=== PATIENT | female | born 1950 | race African-American/Black ===

== ENCOUNTER 2016-12-01 07:56 | Inpatient (IN) | payer MEDICARE, MEDICAID ==
[~2016-12-01] VITALS: Ht 170.2 cm; Wt 118.4 kg
[~2016-12-01 07:56] MED LIST: ATOR20TA65 PO; CARV3.1242 PO; DOCU-138 PO; FLONAS BOTHNSTRLS; GABAPENTIN PO; HYDR-519 PO; HYDR25TA PO; HYDROCHLOROTHIAZIDE PO; LISI10TA5 PO; RANITIDINE PO; SYN200 PO
[2016-12-01] MEDS ORDERED: SODIUM CHLORIDE 0.9% 1,000 ML IV ONE (08:04)
[2016-12-01 08:37] LABS: BASOPHILS % 0.6 % (0.0-2.0); EOSINOPHILS % 0.5 % (0.0-5.0); HEMATOCRIT. 34.6 % (36.0-48.0); HEMOGLOBIN. 11.4 g/dL (12.0-16.0); MEAN CORPUSCULAR HEMOGLOBIN 29.8 pg (28.0-32.0); MEAN CORPUSCULAR VOLUME 90.6 fL (81.0-99.0); MEAN PLATELET VOLUME 8.6 fl (7.4-10.4); MONOCYTES % 8.4 % (2.0-8.0); NEUTROPHILS % 49.5 % (40.0-76.0); PLATELET 169 x1000/uL (130-400); RED BLOOD CELL COUNT 3.81 mill/uL (4.2-5.4); RED CELL DISTRIBUTION WIDTH 20.7 % (11.6-14.6)
[2016-12-01 08:42] LABS: GLUCOSE URINE NEGATIVE (NEGATIVE); KETONES URINE NEGATIVE (NEGATIVE); LEUKOCYTE ESTERASE URINE NEGATIVE (NEGATIVE); NITRITE URINE NEGATIVE (NEGATIVE); OCCULT BLOOD URINE NEGATIVE (NEGATIVE); PROTEIN URINE 1+ (NEGATIVE); SPECIFIC GRAVITY URINE 1.028 (1.005-1.030)
[2016-12-01 08:46] LABS: COLOR URINE YELLOW (YELLOW)
[2016-12-01 08:47] LABS: CLARITY URINE CLEAR (CLEAR)
[2016-12-01 08:55] LABS: PROTHROMBIN TIME 10.7 sec (9.4-11.6)
[2016-12-01 08:57] LABS: CARBON DIOXIDE 30 mEq/L (21-32); CHLORIDE 105 mEq/L (98-107); ETHANOL BLOOD < 10 mg/dL; TROPONIN I < 0.02 ng/mL (0.00-0.04)
[2016-12-01 09:08] LABS: *AMPHETAMINES SCREEN URINE NEGATIVE (NEGATIVE); *BARBITURATES SCREEN URINE NEGATIVE (NEGATIVE); *BENZODIAZEPINES SCREEN URINE NEGATIVE (NEGATIVE); *COCAINE SCREEN URINE PRESUMTIVE POSITIVE (NEGATIVE); CANNABINOID URINE SCREEN NEGATIVE (NEGATIVE); METHADONE URINE SCREEN NEGATIVE (NEGATIVE); OPIATES URINE SCREEN NEGATIVE (NEGATIVE); PHENCYCLIDINE URINE SCREEN NEGATIVE (NEGATIVE)
[2016-12-01 09:14] LABS: BG BASE EXCESS 2.5 mmol/L (-2.0-2.0); BG FRACTION INSPIRED OXYGEN 21; BG HCO3 ACT 27.4 mmol/L (22.0-26.0); BG METHEMOGLOBIN 0.3 % (0.0-1.5); BG OXYGEN SATURATION 95.9 % (92.0-98.5); BG OXYHEMOGLOBIN 93.7 % (94.0-97.0); BG PCO2 43.6 mmHg (35.0-45.0); BG PH 7.416 (7.350-7.450); BG PO2 90.3 mmHg (75.0-100.0); BG SAMPLE SITE LEFT RADIAL; BG TOTAL HEMOGLOBIN 12.2 g/dL (12.0-18.0); BG VENT MODE ROOM AIR
[2016-12-01] MEDS ORDERED: ONDANSETRON HCL 4MG/2ML VIAL IV PRN (12:00)
[2016-12-01] MEDS ORDERED: ACETAMINOPHEN 325MG TABLET PO PRN (12:00)
[2016-12-01] MEDS ORDERED: ACETAMINOPHEN 650MG SUPP PR PRN (12:00)
[2016-12-01] MEDS ORDERED: DOCUSATE SODIUM 100MG CAPSULE PO PRN (12:00)
[2016-12-01] MEDS ORDERED: IPRATROPIUM/ALBUTEROL 0.5-3(2.5)MG/3ML NEB INH PRN (12:00)
[2016-12-01] MEDS ORDERED: MAGNESIUM/ALUMINUM HYDROXIDE/SIMETHICONE 30ML UDC PO PRN (12:00)
[2016-12-01] MEDS ORDERED: NA PHOS,M-B/NA PHOS,DI-BA ENEMA 118ML PR PRN (12:00)
[2016-12-01] MEDS ORDERED: GUAIFENESIN 200MG/10ML SUGAR FREE UDC PO PRN (12:00)
[2016-12-01] MEDS ORDERED: CLONIDINE 0.1MG TABLET PO PRN (12:00)
[2016-12-01] MEDS ORDERED: DIPHENHYDRAMINE 50MG/ML VIAL IV PRN (12:00)
[2016-12-01] MEDS ORDERED: ACETAMINOPHEN 650MG/20.3ML UDC GT PRN (12:00)
[2016-12-01] MEDS ORDERED: SODIUM CHLORIDE 0.9% 1,000 ML IV SCH (17:00)
[2016-12-01 17:11] VITALS: BP 191/86
[2016-12-01 17:19] VITALS: BP 191/86
[2016-12-01] MEDS: ENALAPRIL 2.5MG/2ML VIAL 2ML IV PRN (18:34)
[2016-12-01 20:00] VITALS: BP 184/82
[2016-12-01] MEDS: DEXT 5%/0.9% NACL 1,000 ML IV SCH (20:50)
[2016-12-01] MEDS ORDERED: SODIUM CHLORIDE 0.45% 1,000 ML IV SCH (21:45)
[2016-12-01 22:00] VITALS: BP 189/90
[2016-12-01] MEDS ORDERED: CLONIDINE HCL 0.1MG/24HR PATCH TD SCH (22:00)
[2016-12-01 23:03] LABS: AMMONIA 61 uMol/L (<32)
[2016-12-01] MEDS: HYDRALAZINE 20MG/ML VIAL IV SCH (23:52)
[2016-12-02] VITALS (15 sets, daily range): BP systolic 145–195; BP diastolic 76–103
[2016-12-02 03:39] LABS: CLARITY URINE CLEAR (CLEAR); COLOR URINE YELLOW (YELLOW); GLUCOSE URINE NEGATIVE (NEGATIVE); KETONES URINE NEGATIVE (NEGATIVE); LEUKOCYTE ESTERASE URINE 1+ (NEGATIVE); NITRITE URINE NEGATIVE (NEGATIVE); OCCULT BLOOD URINE 3+ (NEGATIVE); PH URINE 5.5 (4.5-8.0); PROTEIN URINE 1+ (NEGATIVE); SPECIFIC GRAVITY URINE 1.016 (1.005-1.030)
[2016-12-02] MEDS: ENALAPRIL 2.5MG/2ML VIAL 2ML IV PRN ×2 (04:09→14:28)
[2016-12-02 05:28] LABS: *BARBITURATES SCREEN URINE NEGATIVE (NEGATIVE); CANNABINOID URINE SCREEN NEGATIVE (NEGATIVE); METHADONE URINE SCREEN NEGATIVE (NEGATIVE); OPIATES URINE SCREEN NEGATIVE (NEGATIVE); PHENCYCLIDINE URINE SCREEN NEGATIVE (NEGATIVE)
[2016-12-02 05:30] LABS: *AMPHETAMINES SCREEN URINE NEGATIVE (NEGATIVE); *BENZODIAZEPINES SCREEN URINE NEGATIVE (NEGATIVE); *COCAINE SCREEN URINE PRESUMTIVE POSITIVE (NEGATIVE)
[2016-12-02] MEDS: HYDRALAZINE 20MG/ML VIAL IV SCH ×3 (05:36→17:49)
[2016-12-02 06:11] LABS: BASOPHILS % 0.4 % (0.0-2.0); EOSINOPHILS % 0.3 % (0.0-5.0); HEMATOCRIT. 37.9 % (36.0-48.0); HEMOGLOBIN. 12.6 g/dL (12.0-16.0); LYMPHOCYTES % 22.4 % (20.0-50.0); MEAN CORPUSCULAR HEMOGLOBIN 30.4 pg (28.0-32.0); MEAN CORPUSCULAR VOLUME 91.5 fL (81.0-99.0); MEAN PLATELET VOLUME 9.4 fl (7.4-10.4); MONOCYTES % 8.9 % (2.0-8.0); PLATELET 176 x1000/uL (130-400); RED BLOOD CELL COUNT 4.14 mill/uL (4.2-5.4); RED CELL DISTRIBUTION WIDTH 19.8 % (11.6-14.6)
[2016-12-02 06:34] LABS: CARBON DIOXIDE 27 mEq/L (21-32); CHLORIDE 107 mEq/L (98-107); HDL CHOLESTEROL 76 mg/dL (40-59); LDL CHOLESTEROL 113 mg/dL (5-100)
[2016-12-02] MEDS: DEXT 5%/0.9% NACL 1,000 ML IV SCH (12:00)
[2016-12-02] MEDS: LACTULOSE 20G/30ML UDC PO SCH ×2 (15:58→21:45)
[2016-12-02] MEDS ORDERED: ENALAPRIL 1.25MG/ML VIAL 1ML IV PRN (19:45)
[2016-12-03] VITALS (12 sets, daily range): BP systolic 116–177; BP diastolic 58–115
[2016-12-03] MEDS: HYDRALAZINE 20MG/ML VIAL IV SCH ×4 (00:29→17:41)
[2016-12-03] MEDS: DEXT 5%/0.9% NACL 1,000 ML IV SCH (04:54)
[2016-12-03] MEDS: LACTULOSE 20G/30ML UDC PO SCH ×2 (05:24→14:27)
[2016-12-03 13:35] LABS: BASOPHILS % 0.6 % (0.0-2.0); EOSINOPHILS % 0.2 % (0.0-5.0); HEMOGLOBIN. 11.4 g/dL (12.0-16.0); LYMPHOCYTES % 22.3 % (20.0-50.0); MEAN CORPUSCULAR HEMOGLOBIN 29.6 pg (28.0-32.0); MEAN CORPUSCULAR VOLUME 91.3 fL (81.0-99.0); MEAN PLATELET VOLUME 8.8 fl (7.4-10.4); MONOCYTES % 9.3 % (2.0-8.0); NEUTROPHILS % 67.6 % (40.0-76.0); PLATELET 168 x1000/uL (130-400); RED BLOOD CELL COUNT 3.83 mill/uL (4.2-5.4); RED CELL DISTRIBUTION WIDTH 20.5 % (11.6-14.6)
[2016-12-03 14:01] LABS: CARBON DIOXIDE 27 mEq/L (21-32); CHLORIDE 109 mEq/L (98-107)
[2016-12-03] MEDS ORDERED: ENOXAPARIN 40MG/0.4ML SYR SUBCUT SCH (14:05)
[2016-12-03 14:15] LABS: AMMONIA 14 uMol/L (<32)
[2016-12-03] MEDS: ENOXAPARIN 30MG/0.3ML SYR SUBCUT SCH (14:27)
[2016-12-03] MEDS ORDERED: ATORVASTATIN CALCIUM 20MG TABLET PO SCH (21:00)
[2016-12-04] VITALS (12 sets, daily range): BP systolic 116–155; BP diastolic 62–84
[2016-12-04] MEDS: ENOXAPARIN 30MG/0.3ML SYR SUBCUT SCH ×2 (03:17→15:21)
[2016-12-04] MEDS: HYDRALAZINE 20MG/ML VIAL IV SCH ×3 (05:32→12:22)
[2016-12-04] MEDS ORDERED: LACTULOSE 20G/30ML UDC PO SCH (09:00)
== END 2016-12-04 15:50 | DRG 917 ==
LOC: ER 08:03 → EDBEDREQ 08:25 → 3WST 10:12 → EDBEDREQ 10:19 → EDBEDREQTM 10:19 → EDBEDREQSVC 10:19 → ENRESERV 15:21
PROVIDERS: ADMIT Family Medicine; ATTEND Family Medicine
DX: T50.7X1A Poisoning by analeptics and opioid receptor antagonists, accidental (unintentional), initial encounter (principal); G92 Toxic encephalopathy; N17.9 Acute kidney failure, unspecified; E11.22 Type 2 diabetes mellitus with diabetic chronic kidney disease; Z68.41 Body mass index [BMI] 40.0-44.9, adult; N18.9 Chronic kidney disease, unspecified; D63.8 Anemia in other chronic diseases classified elsewhere; E03.9 Hypothyroidism, unspecified; E66.01 Morbid (severe) obesity due to excess calories; E78.5 Hyperlipidemia, unspecified; I12.9 Hypertensive chronic kidney disease with stage 1 through stage 4 chronic kidney disease, or unspecified chronic kidney disease; J44.9 Chronic obstructive pulmonary disease, unspecified; G89.29 Other chronic pain; F14.920 Cocaine use, unspecified with intoxication, uncomplicated; T48.291A Poisoning by other drugs acting on muscles, accidental (unintentional), initial encounter; Y92.89 Other specified places as the place of occurrence of the external cause; Z79.899 Other long term (current) drug therapy; Z95.1 Presence of aortocoronary bypass graft; Z88.0 Allergy status to penicillin
CPT/HCPCS: 36415; 36600; 70450; 70551; 71010; 76770; 80053; 80061; 80305; 80307; 80329; 81001; 82140; 82375; 82805; 82962; 83605; 83690; 83735; 83880; 84484; 85025; 85610; 87040; 87086; 92610; 93005; 93970; 96360; 96361; 97112; 97116; 97162; 97166; 97530; 99291; G0482; J0360; J1650; J3490; J7030; J7042; A4315

== ENCOUNTER 2016-12-04 15:49 | Inpatient (IN) | payer MEDICARE, MEDICAID ==
[~2016-12-04] VITALS: Ht 170.2 cm; Wt 118.4 kg
[2016-12-04 16:00] VITALS: BP 127/69
[2016-12-04] MEDS ORDERED: ACETAMINOPHEN 650MG SUPP PR PRN (17:30)
[2016-12-04] MEDS ORDERED: ONDANSETRON HCL 4MG/2ML VIAL IV PRN (17:30)
[2016-12-04] MEDS ORDERED: NA PHOS,M-B/NA PHOS,DI-BA ENEMA 118ML PR PRN (17:30)
[2016-12-04] MEDS ORDERED: IPRATROPIUM/ALBUTEROL 0.5-3(2.5)MG/3ML NEB HHN PRN (17:30)
[2016-12-04] MEDS ORDERED: MAGNESIUM/ALUMINUM HYDROXIDE/SIMETHICONE 30ML UDC PO PRN (17:30)
[2016-12-04] MEDS ORDERED: DOCUSATE SODIUM 100MG CAPSULE PO PRN (17:30)
[2016-12-04] MEDS ORDERED: GUAIFENESIN 200MG/10ML SUGAR FREE UDC PO PRN (17:30)
[2016-12-04] MEDS ORDERED: CLONIDINE 0.1MG TABLET PO PRN (17:30)
[2016-12-04 17:45] VITALS: BP 127/69
[2016-12-04] MEDS ORDERED: DIPHENHYDRAMINE 50MG/ML VIAL IV PRN (17:58)
[2016-12-04 20:00] VITALS: BP 107/62
[2016-12-04] MEDS: HYDRALAZINE HCL 10MG TABLET PO SCH (21:00)
[2016-12-04] MEDS: ACETAMINOPHEN 650MG/20.3ML UDC PO PRN (21:55)
[2016-12-04] MEDS: ATORVASTATIN CALCIUM 20MG TABLET PO SCH (21:56)
[2016-12-05 00:38] VITALS: BP 137/55
[2016-12-05] MEDS: HYDRALAZINE HCL 10MG TABLET PO SCH ×4 (01:03→19:11)
[2016-12-05] MEDS: ENOXAPARIN 30MG/0.3ML SYR SUBCUT SCH ×2 (06:47→19:10)
[2016-12-05 08:00] VITALS: BP 130/52
[2016-12-05] MEDS: LACTULOSE 20G/30ML UDC PO SCH (08:26)
[2016-12-05 20:00] VITALS: BP 125/55
[2016-12-05] MEDS: MICONAZOLE NITRATE 100MG VAG SUPP VG SCH (21:48)
[2016-12-05] MEDS: ATORVASTATIN CALCIUM 20MG TABLET PO SCH (21:50)
[2016-12-05] MEDS: ACETAMINOPHEN 650MG/20.3ML UDC PO PRN (21:53)
[2016-12-06] MEDS: ENOXAPARIN 30MG/0.3ML SYR SUBCUT SCH ×2 (06:19→17:36)
[2016-12-06] MEDS: HYDRALAZINE HCL 10MG TABLET PO SCH ×4 (06:19→17:37)
[2016-12-06 08:00] VITALS: BP 152/48
[2016-12-06] MEDS: LACTULOSE 20G/30ML UDC PO SCH (08:34)
[2016-12-06] MEDS: ACETAMINOPHEN 650MG/20.3ML UDC PO PRN ×2 (08:36→21:08)
[2016-12-06 20:00] VITALS: BP 136/52
[2016-12-06] MEDS: MICONAZOLE NITRATE 100MG VAG SUPP VG SCH (21:08)
[2016-12-06] MEDS: ATORVASTATIN CALCIUM 20MG TABLET PO SCH (21:08)
[2016-12-07] MEDS: HYDRALAZINE HCL 10MG TABLET PO SCH ×4 (06:17→17:47)
[2016-12-07] MEDS: ENOXAPARIN 30MG/0.3ML SYR SUBCUT SCH ×2 (06:18→17:50)
[2016-12-07 08:00] VITALS: BP 122/63
[2016-12-07] MEDS: LACTULOSE 20G/30ML UDC PO SCH (09:58)
[2016-12-07] MEDS: ACETAMINOPHEN 650MG/20.3ML UDC PO PRN (17:47)
[2016-12-07] MEDS: MICONAZOLE NITRATE 100MG VAG SUPP VG SCH (20:56)
[2016-12-07] MEDS: ATORVASTATIN CALCIUM 20MG TABLET PO SCH (20:56)
[2016-12-08] MEDS: HYDRALAZINE HCL 10MG TABLET PO SCH ×2 (00:07→05:14)
[2016-12-08] MEDS: ENOXAPARIN 30MG/0.3ML SYR SUBCUT SCH (05:14)
[2016-12-08 07:30] VITALS: BP 138/68
[2016-12-08 07:47] VITALS: BP 138/68
[2016-12-08] MEDS: LACTULOSE 20G/30ML UDC PO SCH (08:11)
[2016-12-08] MEDS ORDERED: CLONIDINE HCL 0.1MG/24HR PATCH TD SCH (09:00)
== END 2016-12-08 08:33 | disposition home or self-care (01) | DRG 92 ==
PROVIDERS: ADMIT Psychiatry & Neurology Neurology; ATTEND Family Medicine
DX: G92 Toxic encephalopathy (principal); N17.9 Acute kidney failure, unspecified; E11.22 Type 2 diabetes mellitus with diabetic chronic kidney disease; N18.4 Chronic kidney disease, stage 4 (severe); Z68.41 Body mass index [BMI] 40.0-44.9, adult; E11.42 Type 2 diabetes mellitus with diabetic polyneuropathy; B37.3 Candidiasis of vulva and vagina; F14.10 Cocaine abuse, uncomplicated; I12.9 Hypertensive chronic kidney disease with stage 1 through stage 4 chronic kidney disease, or unspecified chronic kidney disease; F32.9 Major depressive disorder, single episode, unspecified; E03.9 Hypothyroidism, unspecified; E66.01 Morbid (severe) obesity due to excess calories; E78.5 Hyperlipidemia, unspecified; F06.31 Mood disorder due to known physiological condition with depressive features; R30.0 Dysuria; G89.29 Other chronic pain; I25.10 Atherosclerotic heart disease of native coronary artery without angina pectoris; J44.9 Chronic obstructive pulmonary disease, unspecified; M79.7 Fibromyalgia; M54.5 Low back pain; K59.00 Constipation, unspecified; F41.9 Anxiety disorder, unspecified; Z95.1 Presence of aortocoronary bypass graft; Z86.73 Personal history of transient ischemic attack (TIA), and cerebral infarction without residual deficits; Z79.899 Other long term (current) drug therapy; Z88.0 Allergy status to penicillin
CPT/HCPCS: 97110; 97112; 97116; 97162; 97166; 97530; 97535; J1650

== ENCOUNTER 2020-07-30 14:53 | Emergency (ER) | payer MEDICARE, MEDICAID ==
[~2020-07-30] VITALS: Ht 170.2 cm; Wt 95.0 kg
[~2020-07-30 14:53] MED LIST changes: +LISI10TA26 PO; -LISI10TA5 PO
[2020-07-30] MEDS ORDERED: MAGNESIUM/ALUMINUM HYDROXIDE/SIMETHICONE 30ML UDC PO STA (16:33)
[2020-07-30] MEDS ORDERED: DICYCLOMINE 10 MG/5 ML ORAL SYR PO STA (16:33)
[2020-07-30 18:02] LABS: BASOPHILS % 0.5 % (0.0-2.0); EOSINOPHILS % 1.2 % (0.0-5.0); HEMATOCRIT. 36.3 % (36.0-48.0); HEMOGLOBIN. 11.6 g/dL (12.0-16.0); MEAN CORPUSCULAR HEMOGLOBIN 25.7 pg (28.0-32.0); MEAN CORPUSCULAR VOLUME 80.7 fL (81.0-99.0); MEAN PLATELET VOLUME 8.3 fl (7.4-10.4); MONOCYTES % 7.3 % (2.0-8.0); PLATELET 188 x1000/uL (130-400); RED CELL DISTRIBUTION WIDTH 22.7 % (11.6-14.6)
[2020-07-30 18:44] LABS: CHLORIDE 110 mEq/L (98-107)
[2020-07-30 19:15] LABS: PLATELET ESTIMATE NORMAL
[2020-07-30 21:08] LABS: CLARITY URINE CLEAR (CLEAR); COLOR URINE YELLOW (YELLOW); KETONES URINE NEGATIVE (NEGATIVE); LEUKOCYTE ESTERASE URINE NEGATIVE (NEGATIVE); NITRITE URINE NEGATIVE (NEGATIVE); OCCULT BLOOD URINE NEGATIVE (NEGATIVE); PROTEIN URINE TRACE (NEGATIVE); SPECIFIC GRAVITY URINE 1.014 (1.005-1.030)
[2020-07-30] MEDS ORDERED: IBUPROFEN 600MG TABLET PO ONE (22:15)
[2020-07-30] MEDS ORDERED: OMEP40CA12 MT (22:22)
[2020-07-30 22:56] VITALS: BP 114/77
== END 2020-07-30 23:00 | disposition home or self-care (01) ==
LOC: ER 14:53
DX: R10.13 Epigastric pain (principal); R30.0 Dysuria; R11.2 Nausea with vomiting, unspecified; I11.0 Hypertensive heart disease with heart failure; I50.9 Heart failure, unspecified
CPT/HCPCS: 36415; 74018; 80053; 81003; 85025; 93005; 99285

== ENCOUNTER 2023-11-10 13:36 | Emergency (ER) | payer MEDICARE, MEDICAID ==
[~2023-11-10] VITALS: Ht 171.4 cm; Wt 96.0 kg
[~2023-11-10 13:36] MED LIST changes: +OMEP40CA20 MT
[2023-11-10] MEDS: SODIUM CHLORIDE 0.9% 1,000 ML IV ONE (13:45)
[2023-11-10] MEDS: ONDANSETRON HCL 4MG/2ML INJ IV STA (13:45)
[2023-11-10] MEDS: MORPHINE SULFATE 4 MG/ML INJ (FOR IV/IM USE) IV STA (13:45)
[2023-11-10 13:46] VITALS: O2SAT 99
[2023-11-10 14:16] LABS: CHLORIDE 113 mEq/L (98-107); SODIUM 142 mEq/L (136-145)
[2023-11-10 14:17] LABS: CALCIUM 9.9 mg/dL (8.7-10.4); CARBON DIOXIDE 22 mEq/L (21-32)
[2023-11-10 14:18] LABS: BASOPHILS % 0.5 % (0.0-2.0); EOSINOPHILS % 1.1 % (0.0-5.0); HEMATOCRIT. 50.3 % (36.0-48.0); HEMOGLOBIN. 16.7 g/dL (12.0-16.0); LYMPHOCYTES % 50.5 % (20.0-50.0); MEAN CORPUSCULAR HEMOGLOBIN 32.7 pg (28.0-32.0); MEAN CORPUSCULAR HGB CONC 33.2 g/dL (31.0-37.0); MEAN CORPUSCULAR VOLUME 98.3 fL (81.0-99.0); MEAN PLATELET VOLUME 9.1 fl (7.4-10.4); MONOCYTES % 6.2 % (2.0-8.0); NEUTROPHILS % 41.7 % (40.0-76.0); PLATELET 148 x1000/uL (130-400); RED BLOOD CELL COUNT 5.11 mill/uL (4.2-5.4); RED CELL DISTRIBUTION WIDTH 15.8 % (11.6-14.6); WHITE BLOOD COUNT 4.5 x1000/uL (4.5-11.0)
[2023-11-10 14:22] LABS: CREATININE 1.9 mg/dL (0.6-1.0); GLUCOSE 100 mg/dL (70-105); UREA NITROGEN BLOOD 18 mg/dL (9-23)
[2023-11-10 14:23] LABS: TROPONIN I HIGH SENSITIVITY 21 ng/L (3.0-34)
[2023-11-10 14:24] LABS: ALANINE AMINOTRANSFERASE 30 IU/L (10-49); ASPARTATE AMINOTRANSFERASE 29 IU/L (<34); BILIRUBIN DIRECT 0.1 mg/dL (<=3.0); BILIRUBIN TOTAL 0.4 mg/dL (0.1-1.0)
[2023-11-10 14:25] LABS: PROTEIN TOTAL 7.2 g/dL (6.0-8.3)
[2023-11-10] MEDS: FAMOTIDINE 20MG/2ML VIAL IV STA (14:47)
[2023-11-10] MEDS ORDERED: IOHEXOL-300 100 ML BOTTLE ONE (16:00)
[2023-11-10] MEDS ORDERED: ONDA4TAB50 MT (17:49)
[2023-11-10] MEDS ORDERED: HYDR-4001 MT (17:49)
[2023-11-10] MEDS ORDERED: FAMO40TA70 MT (17:49)
[2023-11-10 18:32] LABS: CLARITY URINE CLEAR (CLEAR); COLOR URINE YELLOW (YELLOW); GLUCOSE URINE NEGATIVE (NEGATIVE); KETONES URINE NEGATIVE (NEGATIVE); LEUKOCYTE ESTERASE URINE NEGATIVE (NEGATIVE); NITRITE URINE NEGATIVE (NEGATIVE); OCCULT BLOOD URINE NEGATIVE (NEGATIVE); PH URINE 5.5 (4.5-8.0); PROTEIN URINE 1+ (NEGATIVE)
[2023-11-10 18:58] LABS: BACTERIA URINE NONE SEEN; RBC URINE NONE SEEN /hpf (0-2); SQUAMOUS EPITHELIAL CELL URINE RARE /lpf (RARE/1+); WBC URINE 0-2 /hpf (0-2)
[2023-11-10 19:33] VITALS: BP 208/98; PULSE 55; RESP 17; TEMP 36.78072; O2SAT 99
== END 2023-11-10 19:37 | disposition home or self-care (01) ==
LOC: ER 13:36
DX: R10.13 Epigastric pain (principal); R11.0 Nausea; I10 Essential (primary) hypertension; Z98.890 Other specified postprocedural states; Z79.899 Other long term (current) drug therapy; Z88.0 Allergy status to penicillin
CPT/HCPCS: 99285; 74177; 96374; 96375; 96361; 80076; 80048; 81003; 83690; 85025; 84484; 36415; 93005; Q9967; J3490; J2405; J2270; J7030